=== PATIENT | female | born 1995 | race Caucasian/White ===

== ENCOUNTER → 2020-02-07 15:22 | Outpatient (CLI) | payer SELFPAY ==
[2020-02-07 17:35] LABS: Color, Urine Yellow (Yellow); Glucose, Dipstick Normal (Normal); Ketone-Dipstick 5 mg/dl (Negative); Leukocyte Esterase-Dipstick 25 /ul (Negative); Nitrite-Dipstick Negative (Negative); Occult Blood-Urine Negative /ul (Negative); Protein-Dipstick 15 mg/dl (Negative); Urine Bilirubin Dipstick Negative (Negative); Urine Clarity Clear (Clear); Urine Urobilinogen Normal (Normal); Urine pH 6.5 (5.0 - 8.0)
[2020-02-07 17:39] LABS: Absolute Lymphocyte Count 2.27 X10^3/uL (0.83-4.51); Absolute Neutrophil Count 8.6 X10^3/uL (2.0-7.7); Basophil# 0.02 X10^3/uL; Basophil% 0.2 % (0-1); Eosinophil# 0.04 X10^3/uL; Eosinophils% 0.3 % (0-5); Hematocrit 39.4 % (37-47); Hemoglobin 13.2 g/dL (12.0-15.0); Lymphocyte # 2.27 X10^3/ul (4.0); Lymphocyte % 19.8 % (19-41); Mean Corp Hgb Conc 33.5 g/dL (32-36); Mean Corpuscular Hgb 30.1 pg (27.0-32.0); Mean Corpuscular Volume 89.7 fL (81-99); Mean Platelet Vol. 10.1 fl (6.2-12.0); Monocyte# 0.55 X10^3/uL; Monocyte% 4.8 % (0-10); NRBC Flagged by Analyzer 0 % (0-5); Neutrophil # 8.55 X10^3/uL (2.7-7.7); Neutrophil % 74.5 % (47-70); Platelet Count 278 K/mm3 (150-450); RBC Distribution Width CV 12.9 % (11.6-14.6); RBC Distribution Width SD 42.1 fl (35.1-43.9); Red Blood Count 4.39 M/mm3 (4.2-5.4); White Blood Count 11.5 K/mm3 (4.4-11.0)
[2020-02-07 18:27] LABS: HIV - WCH Non-Reactive (Nonreactive); Hepatitis B Surface Antigen Non-Reactive (Nonreactive); Hepatitis C Antibody Non-Reactive (Nonreactive); Rubella IgG > 500.0 IU/mL
[2020-02-10 01:11] LABS: Prenatal RPR NONREACTIVE (NONREACTIVE)
[2020-02-11 03:06] LABS: Chlamydia By Nucleic Acid AMP Negative (Negative)
[2020-02-11 06:25] LABS: HPV Reflexed? NOT INDICATED
[2020-02-11 06:45] LABS: Gonococcus By Nucleic Acid AMP Negative (Negative)
== END ==
PROVIDERS: Visit Provider Obstetrics & Gynecology
DX: Z34.81 Encounter for supervision of other normal pregnancy, first trimester (principal)
CPT/HCPCS: 36415; 81002; 85025; 86703; 86762; 86803; 87086; 87340; 87491; 87591; 88175; G0145

== ENCOUNTER → 2020-03-24 09:43 | Outpatient (CLI) | payer SELFPAY ==
--- NOTE | 2020-03-24 09:54 | US_ITS ---
STUDY: ABDOMINAL ULTRASOUND - RIGHT UPPER QUADRANT REASON FOR VISIT: Female, 24 years old EPIGASTRIC PAIN X 2 MONTHS TECHNIQUE: Ultrasound evaluation of the right upper quadrant was performed with real-time and static morgan-scale imaging. TECHNICAL QUALITY: Adequate. COMPARISON: None. FINDINGS: Liver: The liver measures 12.2 cm. There is normal echogenicity of the liver. The bile ducts are within normal limits. There is hepatic color flow. The direction of portal flow is hepatopetal. There is no demonstrated mass lesion. Gallbladder: Normal distended gallbladder. The gallbladder wall measures 2.8 mm. There is a negative sonographic Kinsey''s sign. There is no pericholecystic fluid. There are no gallstones. Common Bile Duct (C.B.D.): The common bile duct measures 2.8 mm. Pancreas: Normal size of the head, body and tail of the pancreas. There is normal echogenicity of the pancreas. There is no demonstrated pancreatic mass or cyst. Right Kidney: Normal size of the right kidney. The right kidney measures 10.4 cm x 5.8 cm x 5.8 cm. Normal renal cortex. The right cortex measures 1.8 cm. There is no demonstrated renal mass or cyst. There is no right hydronephrosis. US/Abdomen Limited IMPRESSION: Normal right upper quadrant ultrasound examination. Electronically Signed: Nick Driscoll, at 12:31 EST , Service support ,
[2020-03-24 12:18] LABS: AST(SGOT) 11 U/L (15-37); Alanine Aminotransfer ALT/SGPT 31 U/L (13-56); Albumin, Serum 3.4 g/dL (3.2-5.0); Alkaline Phosphatase 40 U/L (45-117); Bilirubin, Direct 0.14 mg/dL (0.00-0.30); Lipase 237 U/L (73-393); Protein, Total 7.4 g/dL (6.4-8.2)
== END ==
PROVIDERS: PCP Family Medicine
DX: R10.13 Epigastric pain (principal)
CPT/HCPCS: 36415; 76705; 80076; 83690

== ENCOUNTER 2020-04-09 22:36 | Emergency (ER) | payer SELFPAY ==
[2020-04-09 22:37] VITALS: BP 149/96; PULSE 97; RESP 18; TEMP 36.1; O2SAT 99; BMI 28.9
--- NOTE | 2020-04-09 22:58 | US_ITS ---
We are attempting to reach an attending provider to discuss findings. An addendum with communication details will be sent when the communication is complete. STUDY: SECOND AND THIRD TRIMESTER OBSTETRICAL ULTRASOUND - LIMITED REASON FOR EXAM: Female, 25 years old bleeding and cramping LMP: Unknown. PRIOR ULTRASOUND: None. TECHNIQUE: Transabdominal TECHNICAL QUALITY: Adequate. FINDINGS: There is a single intrauterine fetus. The fetus is in a breech presentation. There is demonstrated cardiac activity with a heart rate of 171-180 bpm. There is a normal amniotic fluid volume. The largest amniotic fluid pocket measures 3.2 x 5.1 cm. The placenta is posterior and in the fundal location and is not low lying. There are Grade 0 placental changes. The cervix measures 1.4 cm in length. The cervix is open. The smooth membrane are seen bulging into the superior aspect of the vaginal canal. BIOMETRY: BPD: 3.6 cm: 16 weeks, 6 days HC: 13.4 cm: 16 weeks, 6 days AC: 11.0 cm: 16 weeks, 5 days FL: 2.2 cm: 16 weeks, 3 days Age by LMP: LMP unknown. age by prior US: No prior ultrasound. age by current US: 16 weeks, 5 days. JUANPABLO by current US: 09/20/2020. Estimated weight: 167 grams, +/- 25 grams, 52 percentile. Exam is not dedicated to evaluate anatomy and therefore is limited in this regard. US/OB Limited With Biometrics IMPRESSION: Single intrauterine with ultrasound age of 16 weeks and 5 days and estimated date of delivery of 09/20/2020. Open and cervix with shortening as described and bulging of the gestational sac membrane through the cervical canal into the superior aspect of the vaginal canal concerning for incompetence or complex. Electronically Signed: Argenis Luo MD at 1:00 EST , Service support ,
--- NOTE | 2020-04-09 23:13 | ED.VISSUMM ---
- ER Visit Summary Date of Service: 04/09/20 Chief Complaint: Vaginal bleeding and cramping History of Present Illness: The patient is a 25 F who presents with vaginal bleeding and cramping that began today. Patient states it became worse tonight. Patient states she is approximately 16 weeks . Patient states she has lower abdominal cramping. Patient states this radiates into her back. Patient states this last for a few minutes at a time. Patient states her bleeding is senior analyst developer than her normal menstrual period. Patient denies passing any tissue or clots. Patient admits to urinary frequency but denies any dysuria. Patient is 1 para 0. Physical Examination: Vital signs are stable. Patient is afebrile. Patient is in no acute distress. Oral mucosa is pink and moist. Neck is supple. Trachea is midline. There is no JVD. Heart was regular rate and rhythm. Lungs are clear and equal bilaterally. Abdomen is soft. Bowel sounds are normal. There is lower abdominal tenderness. There is no rebound or guarding noted. Cranial nerves II through XII are intact. There are no focal motor or sensory deficits noted. There is no calf tenderness or edema. Test Results: CBC shows a leukocytosis of 15.8. Comprehensive metabolic profile was within normal limits. Urinalysis shows leukocyte esterase of 100 and occult blood of 250 with greater than 100 red blood cells. There is no evidence of urinary tract infection. Type and Rh was O+. Quantitative hCG was 24,277. Pelvic ultrasound was obtained. There is a single intrauterine at 15 weeks 5 days. heart rate was 171-180. The cervix is opened and the gestational sac membrane is bulging through the cervix and into the superior vaginal canal. This was interpreted by the radiologist and reviewed by myself. Emergency Department Course and Treatment: Patient was given morphine here. Patient is feeling better on reevaluation. Patient was advised of her findings. Case was discussed with Dr. Aguirre who is covering for Dr. Ritesh Quijano. He stated that there is nothing else to do to prevent the miscarriage. Patient was given a repeat dose of morphine. Patient wants to go home and pass it at home. Patient was given a prescription for [place]. Patient was instructed return if worse in any way. Patient was instructed to follow-up with Dr. Quijano in 1 to 2 days. Patient and spouse understood and were agreeable with the plan. All questions were answered. Disposition: Discharge home Impression: Inevitable spontaneous This note was generated with [employer] dictation software. It may contain incorrect words, spelling, and punctuation that were not noted in review of the chart prior to signing ED Disposition - Plan for ED Patient: Disposition: Home or Assisted Living Diagnosis: Inevitable spontaneous Instructions: ED MISCARRIAGE Incomplete Prescriptions: Hydrocodone Bitart/Apap 5-325 [[place] 5MG-325MG] 1 tab PO Q6H PRN PRN 3 Days #10 tab PRN Reason: Pain Prescription Printed Referrals: Ritesh Quijano MD [STAFF PHYSICIAN] - 1-2 Days if not improving
[2020-04-09] MEDS: 0.9% Normal Saline 1,000 ML 1000 ML IV (23:15)
[2020-04-09] MEDS: Morphine 4 MG/ML Syringe IV (23:15)
[2020-04-09] MEDS: Ondansetron 4 MG/2 ML Vial IV (23:16)
[2020-04-09 23:23] LABS: Absolute Lymphocyte Count 3.38 X10^3/uL (0.83-4.51); Absolute Neutrophil Count 11.4 X10^3/uL (2.0-7.7); Basophil# 0.03 X10^3/uL; Basophil% 0.2 % (0-1); Eosinophil# 0.11 X10^3/uL; Eosinophils% 0.7 % (0-5); Hemoglobin 12.1 g/dL (12.0-15.0); Lymphocyte # 3.38 X10^3/ul (4.0); Lymphocyte % 21.3 % (19-41); Mean Corp Hgb Conc 33.6 g/dL (32-36); Mean Corpuscular Hgb 30.1 pg (27.0-32.0); Mean Corpuscular Volume 89.6 fL (81-99); Monocyte# 0.82 X10^3/uL; Monocyte% 5.2 % (0-10); NRBC Flagged by Analyzer 0 % (0-5); Neutrophil # 11.44 X10^3/uL (2.7-7.7); Neutrophil % 72.2 % (47-70); Platelet Count 239 K/mm3 (150-450); RBC Distribution Width CV 13.5 % (11.6-14.6); RBC Distribution Width SD 44.4 fl (35.1-43.9); Red Blood Count 4.02 M/mm3 (4.2-5.4); White Blood Count 15.8 K/mm3 (4.4-11.0)
[2020-04-09 23:27] LABS: Bacteria 0 SEEN /hpf (None Seen); Mucous, Urine 0 SEEN /hpf (<or=2+)
[2020-04-09 23:28] LABS: Color, Urine Amber (Yellow); Glucose, Dipstick Normal (Normal); Ketone-Dipstick 5 mg/dl (Negative); Leukocyte Esterase-Dipstick 100 /ul (Negative); Nitrite-Dipstick Negative (Negative); Occult Blood-Urine 250 /ul (Negative); Protein-Dipstick 30 mg/dl (Negative); Specific Gravity, Urine 1.015 (1.002-1.030); Urine Bilirubin Dipstick Negative (Negative); Urine Clarity Cloudy (Clear); Urine Urobilinogen Normal (Normal)
[2020-04-09 23:35] LABS: ALB/GLOB Ratio 0.9 RATIO (0.9-2.4); AST(SGOT) 13 U/L (15-37); Alanine Aminotransfer ALT/SGPT 26 U/L (13-56); Albumin, Serum 3.4 g/dL (3.2-5.0); Alkaline Phosphatase 51 U/L (45-117); Anion Gap 7 (5-15); BUN 8 mg/dL (7-18); BUN/Creat Ratio 11.7 RATIO (10-20); Calcium,Total 8.8 mg/dL (8.5-10.1); Chloride 109 mmol/L (98-107); Creatinine, Serum 0.69 mg/dL (0.55-1.02); EST Glomerular Filtration Rate 110 mL/min (>60); Est Glom Filt Rate - Afr Amer 133 mL/min (>60); Estimated Creatinine Clearance 93.23 ml/min; Globulin 3.7 g/dL (2.2-4.2); Glucose 85 mg/dL (74-106); Potassium 3.8 mmol/L (3.5-5.1); Protein, Total 7.1 g/dL (6.4-8.2); Sodium Level 139 mmol/L (136-145)
[2020-04-09 23:36] LABS: Red Blood Cells-Urine > 100 SEEN /hpf (0-5); Squamous Epithelial Cells - UA 0-5 SEEN /hpf (5-10); White Blood Cells 0-5 SEEN /hpf (0-5)
[2020-04-10 00:51] VITALS: BP 103/81; PULSE 85; RESP 15; O2SAT 97
[2020-04-10] MEDS: Morphine 4 MG/ML Syringe IV (01:18)
[2020-04-10 02:01] VITALS: BP 122/74; PULSE 89; RESP 15; O2SAT 97
== END 2020-04-10 02:05 | disposition home or self-care (01) ==
PROVIDERS: Emergency Provider Emergency Medicine; PCP Family Medicine
DX: O03.4 Incomplete spontaneous abortion without complication (principal); Z3A.16 16 weeks gestation of pregnancy
CPT/HCPCS: 76816; 80053; 81001; 84702; 85025; 86900; 86901; 96361; 96374; 96375; 96376; 99283; J7030; A4216; J2405

== ENCOUNTER → 2020-09-21 10:33 | Outpatient (CLI) | payer SELFPAY ==
[2020-04-10 11:05] VITALS: BMI 29.2
[2020-09-21 12:38] LABS: Absolute Lymphocyte Count 1.85 X10^3/uL (0.83-4.51); Basophil# 0.02 X10^3/uL; Basophil% 0.2 % (0-1); Eosinophil# 0.03 X10^3/uL; Eosinophils% 0.3 % (0-5); Hematocrit 38.2 % (37-47); Hemoglobin 12.7 g/dL (12.0-15.0); Lymphocyte # 1.85 X10^3/ul (0.83-4.51); Lymphocyte % 19.5 % (19-41); Mean Corp Hgb Conc 33.2 g/dL (32-36); Mean Corpuscular Hgb 29.4 pg (27.0-32.0); Mean Corpuscular Volume 88.4 fL (81-99); Mean Platelet Vol. 9.9 fl (6.2-12.0); Monocyte# 0.52 X10^3/uL; Monocyte% 5.5 % (0-10); NRBC Flagged by Analyzer 0 % (0-5); Neutrophil # 7.04 X10^3/uL (2.7-7.7); Neutrophil % 74.1 % (47-70); Platelet Count 256 K/mm3 (150-450); RBC Distribution Width CV 14.1 % (11.6-14.6); RBC Distribution Width SD 45.3 fl (35.1-43.9); Red Blood Count 4.32 M/mm3 (4.2-5.4); White Blood Count 9.5 K/mm3 (4.4-11.0)
[2020-09-22 09:20] LABS: HIV - WCH Non-Reactive (Nonreactive); Hepatitis B Surface Antigen Non-Reactive (Nonreactive); Hepatitis C Antibody Non-Reactive (Nonreactive); Rubella IgG Reactive (Nonreactive); Syphilis Antibodies Non-reactive
[2020-09-23 00:11] LABS: Chlamydia By Nucleic Acid AMP Negative (Negative)
[2020-09-23 10:02] LABS: Gonococcus By Nucleic Acid AMP Negative (Negative)
== END ==
PROVIDERS: PCP Family Medicine; Visit Provider Obstetrics & Gynecology
DX: Z32.01 Encounter for pregnancy test, result positive (principal); Z11.3 Encounter for screening for infections with a predominantly sexual mode of transmission
CPT/HCPCS: 85025; 86703; 86762; 86780; 86803; 87086; 87340; 87491; 87591

== ENCOUNTER → 2020-11-01 10:32 | Outpatient (CLI) | payer SELFPAY ==
[2020-04-10 11:05] VITALS: BMI 29.2
[2020-11-01 11:18] LABS: Hemoglobin A1c 4.9 % (3.8-5.6)
[2020-11-01 11:40] LABS: Thyroid Stim Hormone (TSH) 0.04 uIU/mL (0.358-3.74)
[2020-11-03 16:08] LABS: Dilute Prothrombin Time (dPT) 32.5 sec (0.0-55.0); Dilute Russell Viper Venom 32.1 sec (0.0-47.0); PTT-LA 28.2 sec (0.0-51.9); Thrombin Time 15.6 sec (0.0-23.0); dPT Confirm Ratio 1.12 Ratio (0.00-1.40)
[2020-11-03 22:51] LABS: Anti-Cardiolipin Ab, IgA, Qn < 9 APL U/mL (0-11); Anti-Cardiolipin Ab, IgG, Qn < 9 GPL U/mL (0-14); Anti-Cardiolipin Ab, IgM, Qn 11 MPL U/mL (0-12); Beta-2-Glycoprotein I IgA <9 (0-25); Beta-2-Glycoprotein I IgG <9 (0-20); Beta-2-Glycoprotein I IgM <9 (0-32); Interpretation Comment: (.)
== END ==
PROVIDERS: PCP Family Medicine
DX: O09.292 Supervision of pregnancy with other poor reproductive or obstetric history, second trimester (principal); Z3A.00 Weeks of gestation of pregnancy not specified
CPT/HCPCS: 36415; 83036; 84443; 86146; 86147

== ENCOUNTER → 2020-11-17 | Outpatient (CLI) | payer SELFPAY ==
[2020-04-10 11:05] VITALS: BMI 29.2
[2020-11-17 10:53] LABS: T4 Free Direct 1.12 ng/dL (0.76-1.46)
== END | disposition home or self-care (01) ==
LOC: WOBLAB 09:14
PROVIDERS: PCP Family Medicine
DX: O46.90 Antepartum hemorrhage, unspecified, unspecified trimester (principal); Z3A.00 Weeks of gestation of pregnancy not specified
CPT/HCPCS: 36415; 84439

== ENCOUNTER → 2021-01-12 10:49 | Outpatient (CLI) | payer SELFPAY ==
[2021-01-12 11:51] LABS: Hematocrit 35.3 % (37-47); Hemoglobin 11.7 g/dL (12.0-15.0); Mean Corp Hgb Conc 33.1 g/dL (32-36); Mean Corpuscular Hgb 30.4 pg (27.0-32.0); Mean Corpuscular Volume 91.7 fL (81-99); Platelet Count 277 K/mm3 (150-450); RBC Distribution Width CV 13.6 % (11.6-14.6); RBC Distribution Width SD 45.4 fl (35.1-43.9); Red Blood Count 3.85 M/mm3 (4.2-5.4); White Blood Count 12.1 K/mm3 (4.4-11.0)
[2021-01-12 11:54] LABS: Glucose Challenge Gest 1H 50g 125 mg/dL (70-140)
== END ==
PROVIDERS: PCP Family Medicine; Visit Provider Obstetrics & Gynecology
DX: Z34.82 Encounter for supervision of other normal pregnancy, second trimester (principal)
CPT/HCPCS: 36415; 82950; 85027

== ENCOUNTER → 2021-04-02 | Outpatient (CLI) | payer SELFPAY | END | disposition home or self-care (01) | LOC: LABSPEC 15:10 | PROVIDERS: PCP Family Medicine; Visit Provider Obstetrics & Gynecology | DX: Z36.85 Encounter for antenatal screening for Streptococcus B (principal) | CPT/HCPCS: 87081 ==

== ENCOUNTER 2021-04-17 15:47 | Outpatient (CLI) | payer SELFPAY ==
[2021-04-17 17:25] LABS: Hemoglobin 11.8 g/dL (12.0-15.0); Mean Corp Hgb Conc 33.7 g/dL (32-36); Mean Corpuscular Hgb 30.1 pg (27.0-32.0); Mean Corpuscular Volume 89.3 fL (81-99); Mean Platelet Vol. 10.8 fl (6.2-12.0); Platelet Count 197 K/mm3 (150-450); RBC Distribution Width SD 45.5 fl (35.1-43.9); Red Blood Count 3.92 M/mm3 (4.2-5.4); White Blood Count 8.8 K/mm3 (4.4-11.0)
[2021-04-17 17:35] LABS: Protein:Creat Ratio 186 mg/g CRE (0-200)
[2021-04-17 18:37] LABS: ALB/GLOB Ratio 0.6 RATIO (0.9-2.4); AST(SGOT) 14 U/L (15-37); Alanine Aminotransfer ALT/SGPT 16 U/L (13-56); Albumin, Serum 2.6 g/dL (3.2-5.0); Alkaline Phosphatase 114 U/L (45-117); Anion Gap 9 (5-15); BUN 11 mg/dL (7-18); BUN/Creat Ratio 18.4 RATIO (10-20); Calcium,Total 9.2 mg/dL (8.5-10.1); Chloride 107 mmol/L (98-107); EST Glomerular Filtration Rate 128 mL/min (>60); Est Glom Filt Rate - Afr Amer 155 mL/min (>60); Globulin 4.1 g/dL (2.2-4.2); Glucose 76 mg/dL (74-106); LDH 192 U/L (84-246); Potassium 3.7 mmol/L (3.5-5.1); Protein, Total 6.7 g/dL (6.4-8.2); Sodium Level 139 mmol/L (136-145)
== END 2021-04-17 23:59 | disposition home or self-care (01) ==
LOC: WOBLAB 15:48
PROVIDERS: PCP Family Medicine; Visit Provider Student in an Organized Health Care Education/Training Program
DX: O16.9 Unspecified maternal hypertension, unspecified trimester (principal); Z3A.00 Weeks of gestation of pregnancy not specified
CPT/HCPCS: 36415; 80053; 82570; 83615; 84156; 85027; 87086; 87088

== ENCOUNTER 2021-04-24 05:55 | Inpatient (IN) | payer SELFPAY ==
[2021-04-24] VITALS (35 sets, daily range): BP systolic 105–227; BP diastolic 61–96; PULSE 77–116; RESP 16; TEMP 36.4–37.1; O2SAT 95–99; BMI 35.0
[2021-04-24] MEDS: Lactated Ringers 500 ML 999 ML IV (06:10)
[2021-04-24 06:50] LABS: Absolute Lymphocyte Count 1.93 X10^3/uL (0.83-4.51); Absolute Neutrophil Count 10.3 X10^3/uL (2.0-7.7); Basophil# 0.02 X10^3/uL; Basophil% 0.2 % (0-1); Eosinophil# 0.04 X10^3/uL; Eosinophils% 0.3 % (0-5); Hematocrit 35.7 % (37-47); Hemoglobin 11.7 g/dL (12.0-15.0); Lymphocyte # 1.93 X10^3/ul (0.83-4.51); Lymphocyte % 14.7 % (19-41); Mean Corp Hgb Conc 32.8 g/dL (32-36); Mean Corpuscular Hgb 29.2 pg (27.0-32.0); Mean Platelet Vol. 10.9 fl (6.2-12.0); Monocyte# 0.71 X10^3/uL; Monocyte% 5.4 % (0-10); NRBC Flagged by Analyzer 0 % (0-5); Neutrophil # 10.34 X10^3/uL (2.7-7.7); Neutrophil % 78.8 % (47-70); Platelet Count 225 K/mm3 (150-450); Red Blood Count 4.01 M/mm3 (4.2-5.4); White Blood Count 13.1 K/mm3 (4.4-11.0)
[2021-04-24] MEDS: Lactated Ringers 1,000 ML 200 ML IV ×2 (06:55→10:15)
--- NOTE | 2021-04-24 08:12 | PCM.HP.BLA ---
History and Physical Date of Admission: 04/24/21 Chief complaint: Contractions History present illness: 26-year-old at 39 weeks and 3 days with JUANPABLO 04/28/2021 by 8 week u/s arrives with contractions. Denies headache, visual changes, chest pain, shortness of breath, nausea vomiting, right upper quadrant pain. Patient states good movement. Obstetric history: G1: 16-week demise G2: Current Past medical history: None Medications: vitamin Past surgical history: None Allergies: No known drug allergies Family history: Denies history of DVT or PE Review of systems: Besides the above pertinent positives a full review of systems was performed and found to be negative Physical exam: Vital signs: Blood pressure 137/61 pulse 85 General: Normal-appearing no acute distress HEENT: Normocephalic atraumatic no cervical of adenopathy Cardiac/respiratory: No use of accessory muscles, nonlabored breathing Abdomen: Soft, nontender, gravid Pelvic exam: Cervical exam 6/60/-3. AROM clear fluid Extremities: No peripheral edema normal peripheral pulses Psych: Normal affect normal demeanor nonpressured speech Labs: White blood cell count 13.1, hemoglobin 11.7, hematocrit 35.7%, platelets 225 Assessment and plan: 26-year-old at 39 weeks and 3 days in labor Admit labor and delivery CEFM GBS negative AROM clear fluid Has epidural, anesthesia to see
[2021-04-24] MEDS: fentaNYL-bupivacaine (epidural) 100 ML BAG EPIDURAL (08:19)
[2021-04-24] MEDS: Ondansetron 4 MG/2 ML Vial IV (08:19)
[2021-04-24] MEDS: Oxytocin 30 units/NS 500 ml 30 UNITS/500 ML IV.SOLN IV (11:00)
[2021-04-24] MEDS: Oxytocin 30 units/NS 500 ml 30 UNITS/500 ML IV.SOLN 334 UNITS IV (12:29)
--- NOTE | 2021-04-24 12:41 | EX.PCM.OBRPT ---
Vaginal Delivery Findings Description of Procedure: Normal spontaneous vaginal delivery of a viable male , vertex MADDI. Head and shoulders delivered with ease. Cord cut and clamped. Baby handed off to patient. Placenta delivered via cord traction and fundal massage. First-degree midline perineal laceration noted and repaired in typical fashion. EBL 300 cc Apgars 9/9
[2021-04-24] MEDS: Ibuprofen 600 MG Tablet PO ×2 (17:52→23:47)
[2021-04-25 00:23] VITALS: BP 99/56; PULSE 90; RESP 16; TEMP 36.3; O2SAT 98
[2021-04-25] MEDS: Acetaminophen 500 MG Tablet 1000 MG PO (03:27)
[2021-04-25 04:25] VITALS: BP 102/68; PULSE 88; RESP 14; TEMP 36.5; O2SAT 97
--- NOTE | 2021-04-25 08:47 | PCM.PN.OB ---
Subjective Subjective Patient without complaints. Breast-feeding going well. Minimal vaginal bleeding. Wants to go home today if baby is able to go. Objective Data Objective Data Vital Signs: Vital Signs Temp Pulse Resp BP Pulse Ox 97.7 F L 88 14 102/68 97 04/25/21 04:25 04/25/21 04:25 04/25/21 04:25 04/25/21 04:25 04/25/21 04:25 Oxygen Delivery Method Room Air Weight: 191 lb 9.307 oz Body Mass Index (BMI) 35.0 Intake & Output: Intake and Output for Last 24 Hours 04/23/21 04/24/21 04/25/21 23:59 23:59 23:59 Intake Total 2104.67 / 2104.67 Balance 2104.67 / 2104.67 Lab / Micro Data Result Diagrams: 04/24/21 06:10 Micro: Microbiology 04/24/21 06:15 Nasal Secretion SARS-CoV-2 Antigen (Rapid) - Final Assessment & Plan (1) Spontaneous vaginal delivery: PLAN: Doing well day #1 status post routine spontaneous vaginal delivery. Will discharge to home later today if baby is able to go with routine instructions.
--- NOTE | 2021-04-25 08:48 | PCM.DC ---
Discharge Instructions Diet Discharge Diet: No restrictions Activity Discharge Activity: May Drive (In 1 to 2 days if not taking narcotic pain medication), May Shower and May Take a Tub Bath May resume sexual activity in: 4-6 weeks Additional Activity Instructions:: Nothing in the vagina for 4-6 weeks. You may return to work/school in 6 weeks. Dressing / Incision Call your doctor if you observe: Fever of 101 or Higher, Inability to urinate, Inability to have a bowel movement and Using more than 1 pad per hour Follow Up Care Please Follow Up With: Ritesh Quijano MD When: Call [phone] to make an appointment with your doctor in 6 weeks. Test Results: Test results from this visit will be discussed in further detail at your follow-up appointment, if applicable. Discharge Plan Admission Admit Date/Time: 04/24/21 05:55 Primary Reason for Your Visit: Vaginal Delivery Attending Provider: Dahiana Smith Primary Care Provider: Aron Wills Consulting Providers: Yanci Quijano Discharge Orders/Prescriptions Prescriptions: No Action famotidine [Pepcid] 40 mg Tablet 40 mg PO BID RF: 0 #2 Tablet 1 tab PO DAILY RF: 0 Referrals / Follow Up: Aron Wills MD [Primary Care Provider] - Disposition Disposition (needs filled in before D/C Order can be placed): Home, Self Care
[2021-04-25 09:42] VITALS: BP 118/80; PULSE 87; RESP 18; TEMP 36.3; O2SAT 96
[2021-04-25] MEDS: Senna/Docusate Sodium 1 Tablet PO (09:53)
[2021-04-25] MEDS: Ibuprofen 600 MG Tablet PO (09:53)
[2021-04-25 13:50] VITALS: BP 117/79; PULSE 82; RESP 16; TEMP 36.2
== END 2021-04-25 16:30 | disposition home or self-care (01) | DRG 807 ==
LOC: WPOUT 06:10 → WP 06:10
PROVIDERS: Student in an Organized Health Care Education/Training Program; Admitting Provider Obstetrics & Gynecology; PCP Family Medicine; Referring Provider Obstetrics & Gynecology; Visit Provider Obstetrics & Gynecology
DX: O70.0 First degree perineal laceration during delivery (principal); Z37.0 Single live birth; Z20.822 Contact with and (suspected) exposure to COVID-19; Z3A.39 39 weeks gestation of pregnancy
CPT/HCPCS: 59025; 59050; 85025; 86850; 86900; 86901; 87426; 99218; J7120; G0378; J2405

== ENCOUNTER 2024-10-19 18:00 | Emergency (ER) | payer OTHER, SELFPAY ==
[2024-10-19 19:01] VITALS: BP 127/97; PULSE 105; RESP 18; TEMP 36.8; O2SAT 98; BMI 23.2
--- NOTE | 2024-10-19 21:11 | ED.VIS.BACK ---
HPI History of Present Illness Chief Complaint: Back Informant: patient and spouse/S.O. Onset/Context/Timing Onset: Today and Yesterday Context: Gradual Onset Injury: lifting Timing: Continuous Quality: Sharp Location: Lumbar and Buttock Current Severity: Moderate Maximum Severity: Severe Worsened by: improves with Movement Relieved by: - (Took 1000 mg of ibuprofen at home.) Associated Symptoms Associated Symptoms: Negative for Numbness, Tingling, Radiation to Right Leg, Radiation to Left Leg, Fever, Abdominal Pain, Dysuria, Unable to Ambulate, Unable to Transfer, Urinary Retention, Urinary Incontinence, Constipation or Fecal Incontinence Narrative Narrative: Healthy 29-year-old female. No back history. No back surgery. No recent illness. Her and her and they are small child went hiking in [place] about 2 days ago. On Friday. She was carrying their son on her shoulders. He weighs about 35 to 40 pounds. She noticed low back pain yesterday worse today. No weakness or numbness in her legs. No bowel or bladder incontinence. No fall or other trauma. No fever. Tonight back pain got worse she took 1000 mg of ibuprofen. Now is feeling somewhat better. Prior similar symptoms: No Recent Illness/Hospitalization: No PFSH PFSH Medical History Spontaneous vaginal delivery Medical History no medical history no medical history Home Medications ?Medication ?Instructions ?Recorded ?Last Taken ?Type famotidine 40 mg tablet (Pepcid) 40 mg PO BID 04/24/21 04/23/21 History prenat.vits,kinsey,hxt-wemw-thimh 1 tab PO DAILY 04/24/21 Unknown History metaxalone 800 mg tablet 800 mg PO TID 7 days #21 tabs 10/19/24 Unknown Rx Allergy/AdvReac Type Severity Reaction Status Date / Time No Known Allergies Allergy Verified 10/19/24 19:02 Social History Smoking Status: Never smoker ROS ROS ED ROS Narrative Lower back pain. Constitutional Constitutional ED: Denies chills or fever(s) Eyes Eyes: Denies blurry vision ENT ENT ED: Denies ear pain Cardiovascular Cardiovascular: Denies chest pain Respiratory/Chest Respiratory/Chest: Denies dyspnea Gastrointestinal Gastrointestinal: Denies abdominal pain, constipation, diarrhea, melena, nausea or vomiting Genitourinary Genitourinary ED: Denies dysuria or hematuria Musculoskeletal Musculoskeletal: Reports back pain; Denies arthralgias, myalgias or neck pain Integumentary Denies abscess or Abrasions Neurologic Neurologic: Denies headache(s) Psychiatric Psychiatric: Denies anxiety Endocrine Endocrinology: Denies cold intolerance Hematologic/Lymphatic Hematologic/Lymphatic: Denies easy bleeding or easy bruising Allergic/Immunologic Allergic/Immunologic ED: Denies mouth swelling, tongue swelling or urticaria EXAM Physical Exam Narrative Exam Narrative: Appearing 29-year-old female sitting up right by the bed. in the room. Vital signs are stable afebrile. She does not look septic toxic or in distress. Initially her back pain was much worse she took ibuprofen at home currently states it is a 6 out of 10. H EENT exam pupils round reactive light. Moist pink members. Neck nontender. Lungs clear to auscultation bilaterally. Heart regular rhythm no murmur. Chest wall and ribs nontender. Abdomen soft nontender. Moving all 4 extremities. She has normal strength in both upper and lower extremities. No cauda equina. No saddle anesthesia. Negative straight leg raise. She is standing up at the bedside. She can raise up on her tippy toes. She has normal medial thigh sensation. Normal dorsi plantarflexion. Back she has mild tenderness in the lumbar. Lumbar soft tissue. No ecchymosis or bruising. No significant bony tenderness. No redness or warmth. Normal in appearance. Neurologic exam normal. Normal strength and sensation. No focal motor deficits. Const Vital Signs: 10/19/24 19:01 Temperature 98.3 F Temperature Source Oral Pulse Rate 105 H Respiratory Rate 18 Blood Pressure 127/97 H Blood Pressure Mean 107 Pulse Ox 98 Oxygen Delivery Method Room Air Positive well nourished and well developed; Negative for obese, cachectic, contractures or unkempt General Appearance ED: well developed and NAD; Negative for unkempt, cachectic or contractures Nutritional Appearance: Negative for cachectic or obese HEENT Reports moist mucous membranes Eyes PERRL and EOMs intact bilaterally Neck no lymphadenopathy, supple and no JVD Resp normal respiratory effort and clear to auscultation bilaterally Cardio regular rate, regular rhythm, S1 normal heart sound, S2 normal heart sound and no murmurs GI normal to inspection, nondistended, normoactive bowel sounds, soft to palpation, non-tender, non-distended and no masses Back/Spine normal to inspection; Negative for no thoracic nor lumbar tenderness Back/Spine Narrative: Mild paralumbar soft tissue tenderness. Normal in appearance. Extremity normal to inspection and no clubbing, cyanosis or edema General Extremety ED: Negative for edema or tenderness General Extremity: Negative for edema Neuro oriented x3 and no sensory deficits noted Sensorium / Orientation: alert Motor Exam: strength 5/5 throughout Psych mental status grossly normal Appearance: Negative for unkempt Skin no rashes or lesions noted and no wounds Image ED - Body Diagram Man:  1. Paralumbar soft tissue tenderness. Currently no spasm. Normal strength in both lower extremities. Normal sensation. MDM MDM MDM Narrative Medical decision making narrative: 29-year-old female low back pain suspect muscle strain and spasm. She did not want anything stronger for pain she says she is feeling better with the ibuprofen she took. She will be given the Skelaxin. She does not need any x-rays because there was no trauma. There is no need for an MRI because she has no signs of cauda equina. There is no weakness or numbness in either lower extremities. She has normal strength. Lab works not necessary. He was given back instructions such as hot shower, warm bath, massage. Skelaxin 3 times daily. Ibuprofen for pain and swelling and Tylenol. Follow-up with not improving return if worse. She and her are comfortable with the plan. History & Record Review Discussion w/independent historian: Patient and Family Additional record(s) reviewed:: Prior inpatient record, Prior outpatient record, Prior ED visit and Prior labs Discharge Plan Triage Chief Complaint: Back ED Provider: Roge Jorge Dx/Rx/DC Orders Clinical Impression: Back strain, Back muscle spasm Instructions: ED Back Pain (Acute or Chronic), ED Back Spasm, No Trauma Prescriptions: New metaxalone 800 mg tablet 800 mg PO TID 7 Days Qty: 21 0RF No Action famotidine [Pepcid] 40 mg Tablet 40 mg PO BID #2 Tablet 1 tab PO DAILY Primary Care Provider: Joni Rogers Referrals: Joni Rogers MD [Primary Care Provider] - 1 Week if not improving Activity Restrictions/Additional Instructions: Hot shower, warm bath, hot tub and massage. Rest and increase activity as tolerated. Motrin 600 mg 3 times a day. Tylenol in between. The muscle relaxant Skelaxin 1 pill 3 times a day. It will take several days and will start taking effect. Follow-up with your doctor if not improving. Return if severe pain, leg weakness, incontinence or develop a fever. Print Language: Polish Disposition Disposition: Home, Self Care
[2024-10-19 21:29] VITALS: BP 120/92; PULSE 86; RESP 18; TEMP 36.6; O2SAT 99
== END 2024-10-19 21:32 | disposition home or self-care (01) ==
PROVIDERS: Emergency Provider Emergency Medicine; PCP Family Medicine; Visit Provider Emergency Medicine
DX: S39.012A Strain of muscle, fascia and tendon of lower back, initial encounter (principal); M62.830 Muscle spasm of back; X58.XXXA Exposure to other specified factors, initial encounter
CPT/HCPCS: 99282